=== PATIENT | male | born 1980 | race Caucasian/White ===

== ENCOUNTER 2025-07-15 13:27 | Emergency (ER) | payer OTHER, SELFPAY ==
[2025-07-15 13:28] VITALS: BP 147/90; PULSE 76; RESP 18; TEMP 36.6; O2SAT 97
--- OUTSIDE RECORDS SUMMARY | 2025-07-15 13:28 | XMS_ITS | Clinical Summary ---
Author Organization [facility] Address [address] [place] [id number] Care Team Providers Care Boiler House Supervisor Name Role Phone Rodrigue Booth MD Primary Care Provider [phone] Allergies No known active allergies Medications rosuvastatin 5 mg tabletIndications:M ixed hyperlipidemia Take 1 Tablet (5 mg) by mouth at bedtime. 90 Tablet 3 5 Active cyclobenzaprine (FLEXERIL) 10 mg tabletIndications:S train of left trapezius muscle, initial encounter Take 1 Tablet (10 mg) by mouth 3 times daily if needed for Muscle Spasm. 30 Tablet 1 5 Active hydrOXYzine HCL (ATARAX) 25 mg tabletIndications:A nxiety Take 1 Tablet (25 mg) by mouth every 8 hours if needed for Anxiety. 30 Tablet 5 Active Active Problems Problem Noted Date Diagnosed Date Venous insufficiency of left leg 06/18/2025 Encounter for screening colonoscopy 02/11/2025 Chronic gout of right foot 05/03/2022 Right lumbar pain 05/03/2022 Hypertriglyceridemia 05/03/2022 Obesity, Class II, BMI 35-39.9 05/03/2022 MIKE 06/11/2017 AHI-11 08/04/2021 Rupture of right distal biceps tendon 10/25/2020 Abnormal liver function test 09/15/2016 History of gout 09/14/2016 Vitamin D deficiency 01/04/2014 Hyperlipidemia 07/07/2009 Resolved Problems Problem Noted Date Diagnosed Date Resolved Date Snoring 09/14/2016 06/18/2025 Encounters Date Type Department Care Team Description 07/15/2025 8:30 AM TRAFFIC SAFETY ADMINISTRATOR Ancillary Procedure [facility] [address] [place] [address] Arrived 07/15/2025 7:25 AM TRAFFIC SAFETY ADMINISTRATOR Office Visit [facility] [address] [place] [address] Donna Olivas PA Chest Pain (No SOB. Has been going on for a couple of weeks or so. Feels heartburn. Heart rate resting 115-123. Sharp pain ins neck and shoulder. Has had bouts of sweating that last a few minutes) 07/15/2025 Travel 06/18/2025 11:15 AM CDT Ancillary Procedure [facility] [address] [place] [address] 06/18/2025 8:45 AM CDT Office Visit [facility] [address] [place] [address] Graeme Martínez MD Foot Problem (LT foot- swelling , redness, painful ; started Sunday ) 06/18/2025 Travel 06/18/2025 Nurse Triage [facility] [address] [place] [address] Rodrigue Booth MD Foot Problem (Left foot swollen, red, left calf tight. Hx of clot in left leg was on blood thinners) 06/10/2025 9:30 AM CDT Office Visit [facility] at [facility] [address] [place] [address] Marielena Garcia MD Vascular Problems (imaging done. Legs sore) 06/10/2025 Travel 04/23/2025 7:47 AM CDT - 04/23/2025 11:59 PM CDT Hospital Encounter [facility] [address] [place] [address] Donna Olivas PA Noble, Isaac J, PT Strain of left trapezius muscle, initial encounter 04/23/2025 Travel 04/21/2025 2:25 PM CDT Office Visit [facility] [address] [place] [address] Donna Olivas PA Back Pain (Patient states his pain started last week he was in the er on 04/19/2025. He states he has a new prescription of xarelto for about a week and a half. He states the pain is in the shoulder blades, neck, spinal area, and into his ears like pressure. He state the pain feels like it is radiating into his head.) 04/21/2025 Travel 04/19/2025 3:33 PM CDT - 04/19/2025 6:33 PM CDT Emergency [facility] [address] [place] [address] Dee Dee Cazares MD Left-sided chest pain (Primary Dx) Discharge Disposition: Home Self Care 04/19/2025 Travel from Last 3 Months Immunizations Immunization Administration Dates Next Due DTP 11/04/1980,04/29/1979,03/06/1979 MMR 11/04/1980 Oral Polio Vaccine 11/04/1980,04/29/1979, 979 Tdap 09/14/2016 Family History Medical History Relation Name Comments Heart Disease Mother NM Heart Disease Paternal Uncle Several Anesthesia Problem No Family History Diabetes No Family History Relation Name Status Comments Father Alive Mother Alive Paternal Uncle Social History Tobacco Use Types Packs/Day Years Used Date Smoking Tobacco: Former Smokeless Tobacco: Current Chew Tobacco Cessation:Ready to Q uit: Not Asked; Counseling Given: Not Answered Comments:Smoking History Packs/day: 0.5, quit chewing about 09/12/19. As of 06/01/20, he uses 2 mg nicotine lozenges 3-4x/day. Alcohol Use Standard Drinks/Week Comments Not Currently 0 (1 standard drink = 0.6 oz pur e alcohol) socially PHQ-2 Answer Date Recorded PHQ-2 TOTAL SCORE 3 07/15/2025 Social Connections Answer Date Recorded Do you often feel lonely or isolated from those around you? 0 06/18/2025 Alcohol Use Answer Date Recorded How often do you have a drink containing alcohol ? 2 06/10/2025 How many drinks containing a lcohol do you have on a typical day when you are drinking? 3 06/10/2025 How often do you have five or more drinks on one occasion? 2 06/10/2025 Financial Resource Strain Answer Date R ecorded Difficulty of Paying Living Expenses 3 06/18/2025 Difficulty of Paying Living Expenses Not on file 06/18/2025 Food Insecurity Answer Date Recorded Do you worry your food will run out before you are able to buy more? 1 06/18/2025 Transportation Needs Answer Date Record ed Does lack of transportation keep you from medica l appointments? 1 06/18/2025 Does lack of transportation keep you from work, meetings or getting things that you need? 1 06/18/2025 Housing Stability Answer Date Recorded What is your housing situation today? 1 06/18/2025 Interpersonal Safety Answer Date Record ed Are you being hit, kicked, p ushed or yelled at (see row info)? No 04/19/2025 Interpersonal Safety Abuse 12 - 18 Not on file 04/19/2025 Interpersonal Safety Ambulatory Vulnerability No t on file 04/19/2025 Utilities Answer Date Recorded Do you have trouble paying f or utilities (for example, heat, electricity, water, phone)? 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 Not on file Not o n file Obstetrics History Last Filed Vital Signs Vital Sign Reading Time Taken Comments Blood Pressure 126/84 07/15/2025 7:40 AM TRAFFIC SAFETY ADMINISTRATOR Pulse 60 07/15/2025 7:40 AM TRAFFIC SAFETY ADMINISTRATOR Temperature 36.6 C (97.9 F) 04/19/2025 3:39 PM CDT Respiratory Rate 14 04/19/2025 3:39 PM CDT Oxygen Saturation 98% 07/15/2025 7:40 AM TRAFFIC SAFETY ADMINISTRATOR Inhaled Oxygen Concentration - - Weight 116.6 kg (257 lb) 07/15/2025 7:40 AM TRAFFIC SAFETY ADMINISTRATOR Height 172.7 cm (5' 8) 04/19/2025 3:39 PM CDT Body Mass Index 39.08 04/19/2025 3:39 PM CDT Plan of Treatment Upcoming Encounters Date Type Department Care Team (Late st Contact Info) Description 07/21/2025 8:00 AM TRAFFIC SAFETY ADMINISTRATOR Office Visit [facility] at [facility] [address] [place] [address] Health Maintenance Due Date Last Done Comments HIV for age 15-65 1993 Hepatitis C screening for age 18-79 1996 Hepatitis B series for 19+ (1 of 3 - 19+ 3-dose series) 1997 COVID-19 vaccine series ( - 2024- season) 2025 Influenza Vaccine (#1) 2025 BMI (ht and wt on same day) for age 18+ 10/31/2025 10/31/2024, 01/02/2022, 02/07/2021, Additional history exists Depression screening for age 12+ 07/15/2026 07/15/2025, 10/31/2024, 05/18/2021, Additional history exists Tetanus booster 09/14/2026 09/14/2016 Lipids for age 45-75 10/31/2029 10/31/2024, 10/17/2022, 05/01/2022, Additional history exists Colonoscopy through age 75 02/11/2035 02/11/2025 RSV vaccine for adults or (1 - 1-dose 75+ series) 2053 Pneumococcal series for age 6-49 Aged Out No longer eligible based on patient's age to complete this topic Medical Devices Implanted Type Area Engraver Optical Frames Device Identifier Shelf Expiration Date Model / Serial / Lot Implant Delivery System, Biocomposite Distal Biceps Repair, [id number] Implanted:Qty: 1 on 11/16/2020 by José Miguel Medina MD at [facility] Right: Arm [employer] 05/19/2022 [id number] / / [id number] Lifenet Decellularized Dermis, Arthroflex Implanted:Qty: 1 on 11/16/2020 by José Miguel Medina MD at [facility] Right: Arm [employer] 02/03/2023 [id number] / / [id number] Implant Delivery System, Distal Biceps Repair Implanted:Qty: 1 on 11/16/2020 by José Miguel Medina MD at [facility] Right: Arm [employer] 07/19/2025 [id number] / / [id number] Procedures Procedure Name Priority Date/Time Associated Diagnosis Comments US VENOUS LOWER EXTREMITY LEFT DOROTHEA 06/18/2025 10:10 AM CDT Localized swelling of left foot Venous insufficiency of left leg TROPONIN T (HS) ONE TIME Timed 04/19/2025 5:[address] CHEST PE STUDY STAT 04/19/2025 4:3 7 PM CDT TROPONIN T (HS) ACUTE W/2HR REFLEX STAT 04/19/2025 4:00 PM CDT BASIC METABOLIC PANEL STAT 04/19/2025 4:00 PM CDT PROTIME-INR STAT 04/19/2025 4:00 PM CDT CBC W PLT NO DIFF STAT 04/19/2025 4:0 0 PM CDT EKG 12 LEAD STAT 04/19/2025 3:39 PM CDT COLONOSCOPY 02/11/2025 2:28 PM CDT LIPID PANEL W REFLEX MEASURED LDL Routine 10/31/2024 9:28 AM CDT Screening for lipid disorders from Last 3 Months or Most Recently Relevant to Health Maintenance Results * US VENOUS LOWER EXTREMITY LEFT (06/18/2025 10:10 AM CDT) Anatomical Region Laterality Modality LEGS, LEG L, Abdomen Ultrasound 06/18/2025 10:1 6 AM CDT Impressions 06/18/2025 10:16 AM CDT Normal left lower extremity venous ultrasound, no sign of deep venous thrombosis. Dictated by Reinaldo Mathur MD @ 06/18/2025 10:16:21 AM (Electronically Signed) Narrative 06/18/2025 10:16 AM CDT For Patients: As a result of the Cures Act, medical imaging exams and procedure reports are released immediately into your electronic medical record. You may view this report before your referring provider. If you have questions, please contact your health care provider. INDICATION: Left foot swelling TECHNIQUE: Ultrasound venous duplex lower left extremity. Compression venous exam was performed using uriarte-scale, color Doppler, and spectral Doppler analysis. COMPARISON: None. FINDINGS: Sonographic imaging demonstrates the left common femoral, deep femoral, superficial femoral, popliteal, posterior tibial and greater saphenous and the contralateral right common femoral veins to be fully compressible with normal color Doppler blood flow. Procedure Note Reinaldo Mathur MD - 06/18/2025 For Patients: As a result of the Cures Act, medical imagingexams and procedure reports are released immediately into your electronicmedical record. You may view this report before your referring provider.If you have questions, please contact your health care provider. INDICATION: Left foot swelling TECHNIQUE: Ultrasound venous duplex lower left extremity. Compression venous examwas performed using uriarte-scale, color Doppler, and spectral Doppleranalysis. COMPARISON: None. FINDINGS: Sonographic imaging demonstrates the left common femoral, deep femoral,superficial femoral, popliteal, posterior tibial and greater saphenous andthe contralateral right common femoral veins to be fully compressible withnormal color Doppler blood flow. IMPRESSION: Normal left lower extremity venous ultrasound, no sign of deep venousthrombosis. Dictated by Reinaldo Mathur MD @ 06/18/2025 10:16:21 AM (Electronically Signed) us Graeme Martínez MD Final Result * TROPONIN T (HS) ONE TIME (04/19/2025 5:53 PM CDT) TROPONIN T HS <6 6-15 ng/L ng/L 04/19/2025 6:16 PM CDT [facility] Blood BLOOD SPECIMEN / Unknown Venipuncture / Unknown 04/19/2025 5:53 PM CDT 04/19/2025 5:57 PM CDT us Dee Dee Cazares MD CHEMISTRY Final Result [facility] [address] [facility] [place], [place] [id number] * CT CHEST PE STUDY (04/19/2025 4:37 PM CDT) Anatomical Region Laterality Modality CHEST, THORAX, HEART Computed To mography 04/19/2025 5:06 PM CDT Impressions 04/19/2025 5:06 PM CDT No evidence of pulmonary embolism. No findings to explain the history of chest pain. No significant incidental findings. Please note that all CT scans at this facility use dose modulation, iterative reconstruction, and/or weight-based dosing when appropriate to reduce radiation dose to as low as reasonably achievable. Dictated by Earl Schmitt MD @ 04/19/2025 5:06:21 PM (Electronically Signed) Narrative 04/19/2025 5:06 PM CDT For Patients: As a result of the Century Cures Act, medical imaging exams and procedure reports are released immediately into your electronic medical record. You may view this report before your referring provider. If you have questions, please contact your health care provider. INDICATION: Pulmonary embolism (PE) suspected, high prob. (Sic) Chest pain, not otherwise described. COMPARISON: None available. TECHNIQUE: CT pulmonary angiography with 100 cc of Omnipaque 350 intravenous contrast. Reconstructed multiplanar MIP series were done. Please note that all CT scans at this facility use dose modulation, iterative reconstruction, and/or weight-based dosing when appropriate to reduce radiation dose to as low as reasonably achievable. FINDINGS: THORAX Pulmonary Arterial Vasculature: Opacification of the pulmonary arterial tree is adequate for assessment of pulmonary embolism. No intraluminal pulmonary arterial filling defect is identified to indicate a pulmonary embolism. Visualized Lower Neck: No lower cervical adenopathy. Lungs: No significant pulmonary findings. Tiny benign calcified right lung granulomas are noted incidentally (series 5; images 150, 151). Bilateral lower lobe dependent hypoventilatory changes. Pleura: No pleural effusion. No pneumothorax. Mediastinum: Thoracic aorta and pulmonary trunk are normal in caliber. Heart and pericardium are without significant findings. Trachea and esophagus are normal in appearance. No mediastinal lymphadenopathy. ABDOMEN Visualized Upper Abdomen: No significant findings. SKELETON AND BODY WALL No acute or significant incidental findings. Procedure Note Earl Schmitt MD - 04/19/2025 For Patients: As a result of the Cures Act, medical imagingexams and procedure reports are released immediately into your electronicmedical record. You may view this report before your referring provider.If you have questions, please contact your health care provider. INDICATION: Pulmonary embolism (PE) suspected, high prob. (Sic) Chest pain, not otherwise described. COMPARISON: None available. TECHNIQUE: CT pulmonary angiography with 100 cc of Omnipaque 350 intravenouscontrast. Reconstructed multiplanar MIP series were done. Please note that all CT scans at this facility use dose modulation,iterative reconstruction, and/or weight-based dosing when appropriate toreduce radiation dose to as low as reasonably achievable. FINDINGS: THORAX Pulmonary Arterial Vasculature: Opacification of the pulmonary arterialtree is adequate for assessment of pulmonary embolism. No intraluminalpulmonary arterial filling defect is identified to indicate a pulmonaryembolism. Visualized Lower Neck: No lower cervical adenopathy. Lungs: No significant pulmonary findings. Tiny benign calcified right lunggranulomas are noted incidentally (series 5; images 150, 151). Bilaterallower lobe dependent hypoventilatory changes. Pleura: No pleural effusion. No pneumothorax. Mediastinum: Thoracic aorta and pulmonary trunk are normal in caliber. Heart andpericardium are without significant findings. Trachea and esophagus arenormal in appearance. No mediastinal lymphadenopathy. ABDOMEN Visualized Upper Abdomen: No significant findings. SKELETON AND BODY WALL No acute or significant incidental findings. IMPRESSION: No evidence of pulmonary embolism. No findings to explain the history ofchest pain. No significant incidental findings. Please note that all CT scans at this facility use dose modulation,iterative reconstruction, and/or weight-based dosing when appropriate toreduce radiation dose to as low as reasonably achievable. Dictated by Earl Schmitt MD @ 04/19/2025 5:06:21 PM (Electronically Signed) us Dee Dee Cazares MD CT Final Result * TROPONIN T ACUTE W/2HR REFLEX (04/19/2025 4:00 PM CDT) [facility] Signature TROPONIN T HS 7 6-15 ng/L ng/L 04/19/2025 4:50 PM CDT [facility] Blood BLOOD SPECIMEN / Unknown IV Start / Unknown 04/19/2025 4:00 PM CDT 04/19/2025 4:00 PM CDT [facility] - 04/19/2025 4:50 PM CDT hs-cTnT (Elecsys Troponin T Gen 5) concentration (s) above the sex-specific 99th percentile (16 ng/L or greater for males or 11 ng/L or greater for females) are indicative of myocardial injury. If initial hs-cTnT <=100 ng/L at presentation, a 0h/2h ABSOLUTE (ng/L) delta change (rising or falling) of >=10 ng/L suggests a significant change, whereas a 0h/2h delta change <=3 ng/L suggests no significant change. If initial hs-cTnT >100 ng/L at presentation, a 0h/2h/ RELATIVE (percent, %) delta change of 20% is suggested to distinguish patients with acute vs. chronic myocardial injury. There are multiple etiologies that can cause hs-cTnT increases above the 99th percentile (myocardial injury) other than acute myocardial infarction. Clinical context and careful clinical evaluation are critical for diagnosis and risk-stratification. The diagnosis of acute myocardial infarction requires a rising and/or falling pattern in hs-cTnT concentrations with at least one value above the sex-specific 99th percentile PLUS at least one of the following clinical criteria: ischemic symptoms, new or presumed new significant ST-T wave changes or new LBBB, development of pathological Q waves, imaging evidence of new loss of viable myocardium or new regional wall motion abnormality, or identification of intracoronary atherothrombosis or an acute angiographic culprit on coronary angiography. In appropriate low-risk patients with a non-ischemic electrocardiogram without active chest pain with a symptom onset >3-hours without recurrence, a single initial hs-cTnT<6 ng/L identifies patient with a very low risk in emergency department patient population. us Dee Dee Cazares MD CHEMISTRY Final Result [facility] [address] [facility] [address] * (ABNORMAL) CBC w PLT no Diff (04/19/2025 4:00 PM CDT) WHITE BLOOD COUNT 5.5 4.5 - 11.0 thou/cu mm 04/19/2025 4:09 PM CDT [facility] RED BLOOD COUNT 5.16 4.30 - 5.90 mil/cu mm 04/19/2025 4:09 PM CDT [facility] HEMOGLOBIN 15.6 13.5 - 17.5 g/dL 04/19/2025 4:09 PM T [facility] HEMATOCRIT 44.5 37.0 - 53.0 % 04/19/2025 4:09 PM T [facility] MCV 86 80 - 100 fL 04/19/2025 4:09 PM T [facility] MCH 30.2 26.0 - 34.0 pg 04/19/2025 4:09 PM T [facility] MCHC 35.1 32.0 - 36.0 g/dL 04/19/2025 4:09 PM T [facility] RDW 13.7 11.5 - 15.5 % 04/19/2025 4:09 PM T [facility] PLATELET COUNT 138(L) 140 - 440 thou/cu mm 04/19/2025 4:09 PM T [facility] MPV 11.0 6.5 - 11.0 fL 04/19/2025 4:09 PM T [facility] Blood BLOOD SPECIMEN / Unknown IV Start / Unknown 04/19/2025 4:00 PM CDT 04/19/2025 4:00 PM CDT us Dee Dee Cazares MD HEMATOLOGY Final Result [facility] [address] [place] [address] * (ABNORMAL) Protime - INR (04/19/2025 4:00 PM CDT) INR 1.8(H) <1.3 04/19/2025 4:13 PM CDT [facility] PROTIME 21.3(H) 10.6 - 12.4 sec 04/19/2025 4:13 PM T [facility] Blood BLOOD SPECIMEN / Unknown IV Start / Unknown 04/19/2025 4:00 PM CDT 04/19/2025 4:00 PM CDT [facility] - 04/19/2025 4:13 PM CDT Therapeutic Range 2.0-3.0 for most anticoagulated patients 2.5-3.5 or 4.0 for high risk patients The INR is only used for patients on stable oral anticoagulant therapy. It makes no significant contribution to the diagnosis or treatment of patients whose Protime is prolonged for other reasons. INR results are increased when heparin levels exceed 1.0 U/mL, which corresponds to an aPTT >125 seconds if the patient is on UFH. us Dee Dee Cazares MD HEMATOLOGY Final Result [facility] [address] [place] [address] * (ABNORMAL) Basic Metabolic Panel (04/19/2025 4:00 PM CDT) Pathologist [facility] SODIUM 139 136 - 145 mmol/L 04/19/2025 4:50 PM [facility] POTASSIUM 4.0 3.5 - 5.1 mmol/L 04/19/2025 4:50 PM [facility] CHLORIDE 101 98 - 107 mmol/L 04/19/2025 4:50 PM [facility] CO2,TOTAL 23 22 - 29 mmol/L 04/19/2025 4:50 PM [facility] ANION GAP 15 5 - 18 04/19/2025 4:50 PM [facility] GLUCOSE 127(H) 70 - 99 mg/dL 04/19/2025 4:50 PM [facility] CALCIUM 9.4 8.8 - 10.4 mg/dL 04/19/2025 4:50 PM CDT [facility] Comment: Reference ranges for this test were updated on 06/24/2024 to reflect our healthy population more accurately. Reference range changes are not retroactively applied to results, but previous results using the same methodology can be interpreted in the context of the new reference range. BUN 18 6 - 20 mg/dL 04/19/2025 4:50 PM CDT [facility] CREATININE 1.27(H) 0.70 - 1.20 mg/dL 04/19/2025 4:50 PM CDT [facility] BUN/CREAT RATIO 14 10 - 20 4:50 PM CDT [facility] eGFR 71(L) >90 mL/min/1. 73m2 04/19/2025 4:50 PM CDT [facility] Comment:As of 2021, eG FR is calculated by the CKD-EPI creatinine equation without race adjustment. eGFR can be influenced by muscle mass, exercise, and diet. The reported eGFR is an estimation only and is only applicable if the renal function is stable. Blood BLOOD SPECIMEN / Unknown IV Start / Unknown 04/19/2025 4:00 PM CDT 04/19/2025 4:00 PM CDT us Dee Dee Cazares MD CHEMISTRY Final Result [facility] [address] [place] [address] * EKG 12 LEAD (04/19/2025 3:39 PM CDT) Interpretation Normal sinus rhythm Normal ECG When compared with ECG of 05-Mar-2025 15:54, No significant change was found BEYOND NOW Ventricular Rate 85 BPM BEYOND NOW Atrial Rate 85 BPM BEYOND NOW P-R Interval 154 ms BEYOND NOW QRS Duration 100 ms BEYOND NOW QT 360 ms BEYOND NOW QTc 428 ms BEYOND NOW P Cidra 56 degrees BEYOND NOW R Cidra 14 degrees BEYOND NOW T Cidra 46 degrees BEYOND NOW 04/19/2025 3:39 PM CDT 04/20/2025 6:29 AM CDT Dee Dee Cazares MD EKG ORD Final Result [facility] NOW [place], [place] * COLONOSCOPY (02/11/2025 2:28 PM CDT) 02/11/2025 2:28 PM CDT Narrative Transcriptions Kenyon Thompson MD - 02/11/2025 3:10 PM CDT Patient Name: Sukumar Baxter Procedure Date: 02/11/2025 Gender: Male Date of : 1980 Admit Type: Ambulatory Procedure: Colonoscopy Proceduralist: Kenyon Thompson MD [facility] MD: Nikhil Hopson Indications/Pre-Op Diagnosis: Screening for colorectal malignantneoplasm Medications: Propofol per Anesthesia Procedure Description: The patient had risks, benefits and alternatives explained to andgave informed consent. The patient had a stable cardiopulmonary status and judged an adequate candidate for conscious sedation. The endoscope PCF-H190L [id number] was passed through the anus andadvanced to the cecum, identified by appendiceal orifice and ileocecal valve.The colonoscopy was performed without difficulty. The patient toleratedthe procedure well. The quality of the bowel preparation was adequate.The ileocecal valve, appendiceal orifice, and rectum were photographed. Complications: No immediate complications. Estimated Blood Loss & Specimen: Estimated blood loss: none. Findings: The perianal and digital rectal examinations were normal. The entire examined colon appeared normal. Impressions/Post-Op Diagnosis: - The entire examined colon is normal. - No specimens collected. Recommendation: - Discharge patient to home. - Resume previous diet. - Continue present medications. - Repeat colonoscopy in 10 years for screening purposes. Kenyon Thompson MD 02/11/2025 3:10:11 PM Note Initiated On: 02/11/2025 2:28 PM Kenyon Thompson MD PROCEDURE ORD Final Resu lt * (ABNORMAL) LIPID PANEL W REFLEX MEASURED LDL (10/31/2024 9:28 AM CDT) [facility] CHOLESTEROL, TOTAL 203(H) <200 mg/dL [facility] HDL CHOLESTEROL 34(L) > OR = 40 mg/dL [facility] TRIGLYCERIDES 229(H) <150 mg/dL [facility] Comment: If a non-fasting specimen was collected, consider repeat triglyceride testing on a fasting specimen if clinically indicated. Cheng et al. J. of Clin. Lipidol. 2015;9:129-169. LDL-CHOLESTEROL 132(H) mg/dL (calc) [facility] Comment: Reference range: <100 Desirable range <100 mg/dL for primary prevention; <70 mg/dL for patients with CHD or diabetic patients with > or = 2 CHD risk factors. LDL-C is now calculated using the Stas-Fitzpatrick calculation, which is a validated novel method providing better accuracy than the Friedewald equation in the estimation of LDL-C. Stas SS et al. [place]. 2013;310(19): 1705-2095 (http://education.Knodium/faq/BQC477) CHOL/HDLC RATIO 6.0(H) <5.0 (calc) [facility] NON HDL CHOLESTEROL 169(H) <130 mg/dL (calc) [facility] Comment: For patients with diabetes plus 1 major ASCVD risk factor, treating to a non-HDL-C goal of <100 mg/dL (LDL-C of <70 mg/dL) is considered a therapeutic option. Blood BLOOD SPECIMEN / Unknown 10/31/2024 9:28 AM CDT 10/31/2024 9:29 AM CDT Nikhil Hopson MD CHEMISTRY Final Result VideoNot.es [facility] [address] [place] [address], [facility] [address] [place] [address] from Last 3 Months or Most Recently Relevant to Health Maintenance Insurance [facility] [id number] Advance Directives * Full Code (Latest Code Status on File) Date Activated Date Inactivated Comments 02/11/2025 12:48 PM 02/11/2025 6:32 PM Question Answer Comments Code Status Discussion: Discussed * Full Code Date Activated Date Inactivated Comments 11/16/2020 10:19 AM 11/17/2020 12:42 AM Question Answer Comments Code Status Discussion: Discussed Care Teams 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
--- OUTSIDE RECORDS SUMMARY | 2025-07-15 13:28 | XMS_ITS | Clinical Summary ---
Author Organization [facility] Address [address] [place] [address]. [place] [address] Care Team Providers Care Sea Captain Name Role Phone No Ref-Primary, Physician Primary Care Provider Allergies No known active allergies Social History Tobacco Use Types Packs/Day Years Used Date Smoking Tobacco: Never Assessed Sex and Gender Information Value Date Recorded Sex Assigned at Not on file Legal Sex Male 11:38 AM CDT Gender Identity Not on file Sexual Orientation Not on file Last Filed Vital Signs Vital Sign Reading Time Taken Comments Blood Pressure 145/101 02/16/2025 11:59 AM CDT Pulse 65 02/16/2025 11:59 AM CDT Temperature 36.2 C (97.2 F) 02/16/2025 11:59 AM CDT Respiratory Rate 20 02/16/2025 11:59 AM CDT Oxygen Saturation 95% 02/16/2025 11:59 AM CDT Inhaled Oxygen Concentration - - Weight 108.9 kg (240 lb) 02/16/2025 11:59 AM CDT Height 172.7 cm (5' 8) 02/16/2025 11:59 AM CDT Body Mass Index 36.49 02/16/2025 11:59 AM CDT Plan of Treatment Health Maintenance Due Date Last Done Comments ADVANCE CARE PLANNING 1980 ANNUAL REVIEW OF HM ORDERS 1978 CT COLONOGRAPHY 1978 DIABETES SCREENING 1978 FIT 1978 FLEX SIG 1978 sDNA (Cologuard) 1978 YEARLY PREVENTIVE VISIT 1981 HIV SCREENING 1993 HEPATITIS C SCREENING 1996 HEPATITIS B VACCINE (1 of 3 - 19+ 3-dose series) 1997 LIPID 2018 PHQ-2 (once per calendar year) 2024 COVID-19 VACCINE (1 - season) 2025 INFLUENZA VACCINE (#1) 2025 DTAP/TDAP/TD VACCINE (5 - Td or Tdap) 09/14/2026 09/14/2016, 11/04/1980, 04/29/1979, Additional history exists ZOSTER VACCINE (1 of 2) 2028 COLONOSCOPY 02/11/2035 02/11/2025 COLORECTAL CANCER SCREENING 02/11/2035 HPV VACCINE (No Doses Required) Completed MENINGITIS VACCINE Aged Out No longer eligible based on patient's age to complete this topic PNEUMOCOCCAL VACCINE: PEDIATRICS (0 to 5 YEARS) AND AT-RISK PATIENTS (6 to 49 YEARS) Aged Out No longer eligible based on patient's age to complete this topic Insurance [employer] Care Teams Sea Captain Relationship Specialty Start Date End Date No Ref-Primary, Physician PCP - General 02/16/25
--- NOTE | 2025-07-15 13:55 | ED.GENADULT ---
HPI - General Adult General Time Seen by Provider: 13:55 Date Seen: 07/15/25 Chief complaint: Chest Pain Stated complaint: Chest pain Time Seen by Provider: 07/15/25 13:36 Source: patient and RN notes reviewed Mode of arrival: ambulatory Limitations: no limitations History of Present Illness HPI narrative: This 44-year-old male is coming to the ER with concerns of episodes of elevated heart rate, shortness of breath, feeling like he can not get a full breath at times. Patient has had about 2 weeks of symptoms, has had a respiratory infection with in the symptoms but some of these symptoms predated the illness. About 10 days ago on Sunday or Sunday, started to feel sick with respiratory symptoms, had congestion, facial pain, headache, cough cold symptoms. On Sunday of last week, 1 week ago, took a [place] from [place] as he thought he was having sinusitis. Still has a little bilateral facial pain below his eyes but overall has felt improved. When he was sick initially, felt he had fevers. He is also had pain in his left neck left shoulder area. Had an episode this past Sunday, 2 days ago where he was at the [email or web address], started not feeling good and went outside. He was diaphoretic, a cardiac nurse reportedly followed him out, she stated his heart rate was fast, 118 but was regular, noted facial pallor at that time. He has noted some chest discomfort that was reportedly similar to indigestion, partially relieved by Mylanta and Tums, this is gone on over the last couple weeks. He notes no new leg swelling, has some chronic left groin pain, has noted some calf cramps of the right leg at night recently. He states he has a history of blood clots, was on blood thinners before. He also notes that he has had a history of left lower extremity cellulitis, this was proceeded by the left groin pain, he notes he has had left groin pain since that time. States they have done venous studies in there is no evidence of blood clots in that leg. He was in clinic this morning at [facility] in [place], he did get a chest x-ray, I cannot see the results yet. He had a stress echo ordered and did proceed to go to work. When he went to work, started to feel more lightheaded or dizzy His family history is notable for significant cardiac disease on his mom's side. His mom had a heart attack in her 50s (chart states age 54), he has a maternal uncle who has had multiple heart attacks. He has another maternal uncle that from a stroke. Patient has hyperlipidemia, vitamin-D deficiency, history of gout, obesity, venous insufficiency of left leg (does wear compression stockings usually but not on today). Patient also is noted to have obstructive sleep apnea. He is noted to have abnormal liver function testing, do not see recent liver enzymes however. Patient had an ED visit on 04/19/2025 at [facility] for shoulder pain, shortness of breath and chest pain. He was noting that he was having pain in the bottom of his left shoulder blade, wrapping to his left pectoral area, some radiation to the neck. They note that there are records from prior visits and ultrasounds with concerns for venous insufficiency and superficial thrombophlebitis but no definite documentation of DVT ever. Patient did have Xarelto listed at 20 mg daily on that visit. Patient had a chest CT with no evidence of pulmonary embolism at that time, no findings to explain history of chest pain, no significant incidental findings. His cardiac workup with EKG, monitoring and on troponins were normal as well. Related Data Home Medications ?Medication ?Instructions ?Recorded ?Confirmed cyclobenzaprine 10 mg tablet 10 mg PO 3XD 07/15/25 07/15/25 hydroxyzine HCl 25 mg tablet 25 mg PO 3XD 07/15/25 07/15/25 rosuvastatin 5 mg tablet 5 mg PO DAILY 07/15/25 07/15/25 Allergies Allergy/AdvReac Type Severity Reaction Status Date / Time No Known Drug Allergies Allergy Verified 07/15/25 14:58 Review of Systems Status of ROS: Reports: 6 or more systems reviewed and unremarkable except as noted in History and below Exam Const: Vital Signs, click to edit/add: Vital Signs - 24 hr 07/15/25 13:28 Temperature 98 F Pulse Rate [Right Pulse Oximeter] 76 Respiratory Rate 18 Blood Pressure [Ri ght Upper Arm] 147/90 H Pulse Oximetry 97 Oxygen Delivery Me thod Room Air This 44-year-old male is alert, interactive, no apparent distress. Speech is normal, speaking in complete sentences. Pupils equal round reactive, sclera clear, extraocular muscles intact. Symmetrical facial function. Neck thick but no noted giving stanchion, no masses or adenopathy. He sits up easily, lungs are clear, good air entry, wheezing crackles, no tachypnea, no accessory muscle use. CV regular rate and rhythm, no murmur, normal S1-S2, no S3-S4. Abdomen soft, nontender, nondistended, no organomegaly. He has no pretibial pitting edema at this time. Patient was ambulatory into the ED of his own accord. Documenting provider has reviewed patient's vital signs: yes Course Course ED Course: We will proceed with chest CT PE protocol on this patient. His baseline EKG is reassuring here. Did review his notes from clinic and his [facility] Epic record. He will be on cardiac monitoring and pulse oximetry to rule out arrhythmia and hypoxia. Will get appropriate labs including a troponin. If all these are normal, do think he should follow through with getting the stress echo that has been ordered through clinic. Will guide therapy accordingly here. Reevaluation(s) Time of Reevaluation #1: 15:24 Reevaluation #1: Patient is updated on his normal chest CT. We reviewed his labs. There is no elevation in his cardiac markers, troponin is normal. He has had symptoms for 2 weeks now, do not feel is necessary to follow any further labs, do repeat troponins. He is reassured, comfortable going home. We did discuss alternate etiologies including cervical or shoulder musculoskeletal issues. He certainly could have GERD symptoms presenting with chest physical symptoms. He will follow up in clinic for further evaluation and workup, will get his stress test ordered as well. Vital Signs Vital signs: Initial Vital Signs Temperature 98 F 07/15/25 13:28 Temperature Source Temporal Artery Scan 07/15/25 13:28 Pulse Rate 76 07/15/25 13:28 Pulse Rhythm Regular 07/15/25 13:28 Pulse Strength 3+ Normal 07/15/25 13:28 Respiratory Rate 18 07/15/25 13:28 Blood Pressure 147/90 H 07/15/25 13:28 Blood Pressure Mean 109 H 07/15/25 13:28 Blood Pressure Position Sitting 07/15/25 13:28 Pulse Oximetry 97 07/15/25 13:28 Oxygen Delivery Method Room Air 07/15/25 13:28 Vital Signs Temperature 98 F 07/15/25 13:28 Pulse Rate 76 07/15/25 13:28 Respiratory Rate 18 07/15/25 13:28 Blood Pressure 147/90 H 07/15/25 13:28 Pulse Oximetry 97 07/15/25 13:28 Oxygen Delivery Method Room Air 07/15/25 13:28 Temperature 98 F 07/15/25 13:28 Pulse Rate 76 07/15/25 13:28 Respiratory Rate 18 07/15/25 13:28 Blood Pressure 147/90 H 07/15/25 13:28 Pulse Oximetry 97 07/15/25 13:28 Oxygen Delivery Method Room Air 07/15/25 13:28 Medical Decision Making Lab Data Lab results reviewed: Yes I reviewed the patient's lab results Labs: Lab Results 07/15/25 07/15/25 Range/Units 14:12 14:24 WBC 4.33 L (4.50-11.00) K/uL RBC 5.30 (4.30-5.90) m/uL Hgb 15.6 (13.5-17.5) gm/dL Hct 45.7 (37.0-53.0) % MCV 86 (80-100) fL MCH 29 (26-34) pg MCHC 34 (32-36) gm/dL RDW Coeff of Yana 12.6 (11.5-15.5) % Plt Count 179 (140-440) K/uL Neut % (Auto) 62.2 (42.0-72.0) % Lymph % (Auto) 28.2 (20-44) % [place] % (Auto) 6.7 (0.0-11.0) % Eos % (Auto) 2.5 (0.0-7.0) % Baso % (Auto) 0.2 (0.0-3.0) % Neut # (Auto) 2.70 (1.7-7.0) K/uL Lymph # (Auto) 1.20 (0.90-2.90) K/uL [place] # (Auto) 0.30 (0.00-0.90) K/UL Eos # (Auto) 0.10 (0.00-0.50) K/uL Baso # (Auto) 0.00 (0.00-0.30) K/uL Abs Immat Gran (auto) 0.00 (0.00-0.30) K/uL Imm/Tot Granulo (auto) 0.2 % D-Dimer Quant (PE/DVT) < 0.27 (0.00-0.50) ug/ml VBG pH 7.403 (7.32-7.43) VBG pCO2 44 (40-50) mmHG VBG pO2 54.5 H (25-47) mmHG VBG HCO3 27 (21-28) mmol/L Sodium 136 (135-149) mmol/L Potassium 3.9 (3.6-5.1) mmol/L Chloride 98 (96-114) mmol/L Carbon Dioxide 25 (20-32) mmol/L Anion Gap 13 (7-15) mEq/L BUN 20 (5-24) mg/dL Creatinine 0.9 (0.5-1.5) mg/dL Estimated GFR 107 ml/min Glucose 119 H (60-115) mg/dL Lactate 1.4 (0.5-1.9) mmol/L Calcium 9.5 (8.4-10.6) mg/dL Magnesium 2.0 (1.5-2.6) mg/dL Total Bilirubin 0.9 (0.1-1.5) mg/dL AST 37 H (12-35) U/L ALT 62 H (4-50) U/L Alkaline Phosphatase 63 (40-150) U/L POC Troponin I High Sensi < 2.9 L (2.9-28.0) pg/mL C-Reactive Protein 0.6 (0.5-1.0) mg/dL NT-Pro-B Natriuret Pep < 20 (See Note) pg/mL Total Protein 7.4 (6.0-8.3) g/dL Albumin 4.4 (3.3-5.0) g/dL Imaging Data CT scan - chest: Attestation: I have reviewed the pertinent imaging results. Radiologist's impression: Patient: NICOLAS HOBSON Facility:?[facility] Patient ID:?[id number] Site Patient ID:?[id number]. Site :?[id number] Study:?CT-Chest Angio 95CC ISOVUE 370 PE STUDY-07/15/2025 3:03:55 PM Ordering Physician:?Fe Henriquez Final Report: INDICATION: Chest discomfort, tachycardia and history of blood clots. TECHNIQUE: CT chest PE was acquired with 95 cc Isovue 370 IV contrast. Axial maximum intensity projection reformatted images were performed on the scanner. COMPARISON: None. FINDINGS: Heart and vasculature: Contrast opacification of the pulmonary arterial tree is adequate. No sign of pulmonary embolism. Heart size is normal. Thoracic aorta and pulmonary artery are normal in caliber. Lungs and pleura: No pleural effusion or pneumothorax. No consolidation or suspicious pulmonary nodule. Lymph nodes/mediastinum: No mediastinal or hilar lymphadenopathy. Chest wall: No masses. Upper abdomen: Normal. Bones: Unremarkable for age. IMPRESSION: Unremarkable chest CTA. No evidence of pulmonary embolus. Please note that all CT scans at this facility use dose modulation, iterative reconstruction, and/or weight-based dosing when appropriate to reduce radiation dose to as low as reasonably achievable. Dictated by Reinaldo Mathur MD @ 07/15/2025 3:18:08 PM (Electronic Signature) ECG Data Attestation: I personally reviewed and interpreted this ECG as follows: (Normal sinus rhythm, 67 beats per minute. No ischemia, no infarct. QT corrected 403 milliseconds.) Prior ECG tracings: not available for review Discharge Plan Discharge Clinical Impression: Atypical chest pain Patient Disposition: Home, Self-Care Condition: Stable Instructions: Chest Pain (ED), Noncardiac Chest Pain (ED) Additional Instructions: Need to get the stress echo scheduled through clinic as ordered. There is no evidence on the chest CT of any lung infection or pneumonia. It is possible that the neck and shoulder symptoms are coming from neck issues or shoulder issues, follow up in clinic for further evaluation if ongoing symptoms. There was no evidence of any pulmonary embolus on your chest imaging, heart enzyme and cardiac markers are completely normal. Talk to your primary care provider about other possible etiologies like gastrointestinal. May need to consider having an EGD or further workup if ongoing symptoms. Activity Level: Activity as Tolerated Discharge Diet: Heart Healthy (2 gm sodium, low fat) Prescriptions: No Action rosuvastatin 5 mg tablet 5 mg PO DAILY cyclobenzaprine 10 mg tablet 10 mg PO 3XD hydroxyzine HCl 25 mg tablet 25 mg PO 3XD Follow Up/Referrals: Donna Olivas PA-C [Primary Care Provider, Family Practice] Stand Alone Forms: [employer] Info Instructions Procedures ABG Interpretation ABG Results: 07/15/25 14:24 VBG pH 7.403 VBG pCO2 44 VBG pO2 54.5 H VBG HCO3 27
--- NOTE | 2025-07-15 14:11 | CRLHL7_ITS ---
For Patients: As a result of the Century Cures Act, medical imaging exams and procedure reports are released immediately into your electronic medical record. You may view this report before your referring provider. If you have questions, please contact your health care provider. INDICATION: Chest discomfort, tachycardia and history of blood clots. TECHNIQUE: CT chest PE was acquired with 95 cc Isovue 370 IV contrast. Axial maximum intensity projection reformatted images were performed on the scanner. COMPARISON: None. FINDINGS: Heart and vasculature: Contrast opacification of the pulmonary arterial tree is adequate. No sign of pulmonary embolism. Heart size is normal. Thoracic aorta and pulmonary artery are normal in caliber. Lungs and pleura: No pleural effusion or pneumothorax. No consolidation or suspicious pulmonary nodule. Lymph nodes/mediastinum: No mediastinal or hilar lymphadenopathy. Chest wall: No masses. Upper abdomen: Normal. Bones: Unremarkable for age. IMPRESSION: Unremarkable chest CTA. No evidence of pulmonary embolus. Please note that all CT scans at this facility use dose modulation, iterative reconstruction, and/or weight-based dosing when appropriate to reduce radiation dose to as low as reasonably achievable. Dictated by Reinaldo Mathur MD @ 07/15/2025 3:18:08 PM (Electronically Signed)
[2025-07-15 14:33] LABS: HCO3 VBG 27 mmol/L (21-28); Lactate* 1.4 mmol/L (0.5-1.9); PCO2 VBG 44 mmHG (40-50); PO2 VBG 54.5 mmHG (25-47); pH VBG 7.403 (7.32-7.43)
[2025-07-15 14:37] LABS: Hematocrit* 45.7 % (37.0-53.0); Hemoglobin* 15.6 gm/dL (13.5-17.5); Immature Granulocytes Pct Auto 0.2 %; Mean Corpuscular HGB Conc 34 gm/dL (32-36); Mean Corpuscular Hemoglobin 29 pg (26-34); Mean Corpuscular Volume 86 fL (80-100); RDW Coefficient of Variation % 12.6 % (11.5-15.5); Red Blood Count* 5.30 m/uL (4.30-5.90); White Blood Count* 4.33 K/uL (4.50-11.00)
[2025-07-15 14:57] LABS: Albumin* 4.4 g/dL (3.3-5.0); Chloride* 98 mmol/L (96-114); Potassium* 3.9 mmol/L (3.6-5.1); Sodium* 136 mmol/L (135-149)
[2025-07-15 14:59] LABS: Alanine Aminotransferase* 62 U/L (4-50); Aspartate Amino Transferase* 37 U/L (12-35); Blood Urea Nitrogen* 20 mg/dL (5-24); Creatinine* 0.9 mg/dL (0.5-1.5); Estimated Glomerular Filt Rate 107 ml/min
[2025-07-15 15:00] LABS: Alkaline Phosphatase* 63 U/L (40-150); Anion Gap 13 mEq/L (7-15); Bilirubin Total* 0.9 mg/dL (0.1-1.5); Calcium* 9.5 mg/dL (8.4-10.6); Carbon Dioxide* 25 mmol/L (20-32); Glucose* 119 mg/dL (60-115); Total Protein* 7.4 g/dL (6.0-8.3)
[2025-07-15 15:01] LABS: Immature Granulocytes Abs Auto 0.00 K/uL (0.00-0.30); Lymphocytes Absolute Auto 1.20 K/uL (0.90-2.90); Slide Review Reflex No
[2025-07-15 15:07] VITALS: PULSE 63; RESP 12; O2SAT 97
[2025-07-15 15:10] LABS: NT Pro B Type NatriureticPept* < 20 pg/mL (See Note)
[2025-07-15 15:15] VITALS: PULSE 65; RESP 18; O2SAT 97
[2025-07-15 15:18] LABS: D Dimer Quantitative* < 0.27 ug/ml (0.00-0.50)
[2025-07-15 15:30] VITALS: PULSE 67; RESP 10; O2SAT 98
== END 2025-07-15 15:37 | disposition home or self-care (01) ==
PROVIDERS: Emergency Provider Family Medicine; PCP Student in an Organized Health Care Education/Training Program
DX: R07.89 Other chest pain (principal)
CPT/HCPCS: 36415; 71275; 80053; 82803; 83605; 83735; 83880; 84484; 85025; 85379; 86140; 93005; 94761; 99284; 99285; Q9967